=== PATIENT | female | born 1975 | race American Indian/Alaskan Native ===

== ENCOUNTER 2017-07-16 10:36 | Outpatient (CLI) | payer OTHER ==
--- NOTE | 2017-07-16 11:45 | XRay Report ---
XRAY RIGHT KNEE 4 THREE VIEWS: 07/16/17 CLINICAL: Right knee pain. FINDINGS: No fracture or dislocation. Medial joint space narrowing but no osteophytes. The lateral joint space and patellofemoral joint are normal.No joint effusion.Normal soft tissues. 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
== END 2017-07-16 10:37 | disposition home or self-care (01) ==
LOC: SPVIMAG 10:36
PROVIDERS: ATTEND Orthopaedic Surgery Sports Medicine
DX: M17.11 Unilateral primary osteoarthritis, right knee (principal)